=== PATIENT | female | born 1960 | race Two or more races ===

== ENCOUNTER 2020-10-20 06:10 | Day surgery (SDC) | payer OTHER ==
[~2020-10-20 06:10] MED LIST: ABILIFY5 MG PO; ATIVAN0.5 M1 PO; COZAAR100 MG PO; DICLOFENAC POTA50 MG PO; GABAPENTIN400 MG PO; GLIMEPIRIDE2 M1 PO; LANTUS SOL100 UNIT/1; LIPITOR40 M1 PO; LUNESTA3 MG PO; OMEPRAZOLE40 MG PO; PAXIL40 MG PO; SINGULAIR 10MG10 MG PO; SKELAGESIC; ULTRAM50 MG PO
[2020-10-20] MEDS ORDERED: ULTRACET PO (14:36)
[2020-10-20] MEDS ORDERED: CIPRO250 MG PO (14:36)
== END 2020-10-20 17:00 | disposition home or self-care (01) ==
LOC: CIR.AMB 06:10
PROVIDERS: ATTEND Obstetrics & Gynecology Gynecology
DX: N32.81 Overactive bladder (principal); Z20.822 Contact with and (suspected) exposure to COVID-19
CPT/HCPCS: 64590; 64581; 95972; C1778; L8679